=== PATIENT | female | born 1995 | race Caucasian/White ===

== ENCOUNTER 2016-10-04 14:00 | Emergency (ER) | payer MEDICAID ==
[~2016-10-04] VITALS: Ht 162.6 cm; Wt 70.0 kg
[2016-10-04 14:04] VITALS: BP 123/76; PULSE 77; RESP 15; TEMP 98.2; O2SAT 97
--- NOTE | 2016-10-04 14:28 | PD ---
HPI Chief Complaint: Pain: Acute or Chronic Time Seen by Provider: 14:28 Travel History International Travel<30 days: No Contact w/Intl Traveler<30days: No Traveled to known affect area: No History of Present Illness HPI 20-year-old female presents to the ED for evaluation of 4 day history of right sided right upper outer quadrant breast pain. Gradual onset. Patient denies fever, chills. She has been unable to express anything from the nipple. She states these symptoms are similar to previous episode of mastitis. She quit nursing approximately 10 months ago. She denies chronic breast changes with menstrual cycle. She has never had a mammogram. Unsure of any breast cancer history in the family. PFSH Past Medical History ?: Unknown Social History Tobacco Use: No Allergies-Medications (Allergen,Severity, Reaction): Coded Allergies: No Known Allergies (Unverified , 10/04/16) Reported Meds & Prescriptions Reported Meds & Active Scripts Active Keflex (Cephalexin) 500 Mg Cap 500 Mg PO Q8H Bactrim DS (Sulfamethoxazole-Trimethoprim) 800-160 Mg Tab 1 Tab PO BID Review of Systems Except as stated in HPI: all other systems reviewed are Neg Physical Exam Narrative GENERAL: Well-nourished, well-developed white female in no acute distress. SKIN: Focused skin assessment warm/dry. BREAST EXAM: TTP in the right upper outer quadrant of the right breast, adjacent to the areola. No palpable mass. No nipple discharge. No axillary LAD. HEAD: Normocephalic. EYES: No scleral icterus. No injection or drainage. NECK: Supple, trachea midline. No JVD or lymphadenopathy. CARDIOVASCULAR: Regular rate and rhythm without murmurs, gallops, or rubs. RESPIRATORY: Breath sounds equal bilaterally. No accessory muscle use. GASTROINTESTINAL: Abdomen soft, non-tender, nondistended. MUSCULOSKELETAL: No cyanosis, or edema. BACK: Nontender without obvious deformity. No CVA tenderness. Data Data Last Documented VS Vital Signs Date Time Temp Pulse Resp B/P Pulse Ox O2 Delivery O2 Flow Rate FiO2 10/04/16 17:30 99.1 16 10/04/16 14:04 77 123/76 97 Orders Complete Blood Count With Diff (10/04/16 15:09) Basic Metabolic Panel (Bmp) (10/04/16 15:09) Us Breast Unilateral (10/04/16 ) Ed Urine Pregnancytest Poc (10/04/16 15:09) Labs Laboratory Tests Test 10/04/16 16:00 White Blood Count 12.6 TH/MM3 Red Blood Count 5.06 MIL/MM3 Hemoglobin 15.4 GM/DL Hematocrit 45.4 % Mean Corpuscular Volume 89.9 FL Mean Corpuscular Hemoglobin 30.5 PG Mean Corpuscular Hemoglobin 33.9 % Concent Red Cell Distribution Width 13.6 % Platelet Count 284 TH/MM3 Mean Platelet Volume 8.4 FL Neutrophils (%) (Auto) 72.7 % Lymphocytes (%) (Auto) 18.6 % Monocytes (%) (Auto) 6.3 % Eosinophils (%) (Auto) 1.9 % Basophils (%) (Auto) 0.5 % Neutrophils # (Auto) 9.1 TH/MM3 Lymphocytes # (Auto) 2.3 TH/MM3 Monocytes # (Auto) 0.8 TH/MM3 Eosinophils # (Auto) 0.2 TH/MM3 Basophils # (Auto) 0.1 TH/MM3 CBC Comment DIFF FINAL Differential Comment Sodium Level 139 MEQ/L Potassium Level 4.3 MEQ/L Chloride Level 107 MEQ/L Carbon Dioxide Level 26.9 MEQ/L Anion Gap 5 MEQ/L Blood Urea Nitrogen 11 MG/DL Creatinine 0.66 MG/DL Estimat Glomerular Filtration 115 ML/MIN Rate Random Glucose 80 MG/DL Calcium Level 9.4 MG/DL MDM Medical Decision Making Medical Screen Exam Complete: Yes Emergency Medical Condition: Yes Differential Diagnosis Mastalgia versus periductal mass versus fibroadenoma versus fibrocystic changes versus other Narrative Course 20-year-old female presents to the ED for evaluation of 4 day history of right sided right upper outer quadrant breast pain. Gradual onset. Patient denies fever, chills. She has been unable to express anything from the nipple. She states these symptoms are similar to previous episode of mastitis. She quit nursing approximately 10 months ago. She denies chronic breast changes with menstrual cycle. She has never had a mammogram. Unsure of any breast cancer history in the family. Vitals reviewed. Physical exam reveals a nontoxic- appearing white female in no acute distress. TTP in the upper outer quadrant of the right breast, adjacent to the areola. No palpable mass. No nipple discharge. No axillary LAD. CBC: WBC 12.6. No anemia. CMP: Unremarkable. Breast US: No drainable fluid collection seen. Given the elevated white count we'll treat with outpatient antibiotics for possible early cellulitis. Patient is instructed to take the antibiotics as prescribed, continue with warm compresses, follow up with her primary care for recommendations regarding mammography. She indicated understanding of the instructions and agrees to the care plan. She stable and discharged home. Diagnosis Primary Impression: Cellulitis of right breast Referrals: [facility] Patient Instructions: Cellulitis (ED), General Instructions Additional Instructions: Rest, hydrate. Take all antibiotics as prescribed, even if your symptoms resolve. Take [id number] pain medications as directed on label, as needed. Warm compresses applied to the breast may also help to reduce your pain symptoms. Follow-up with the [facility] as discussed. Discuss your breast cancer risks with your doctor for mammography recommendations. Return to the ED for worsening symptoms or any urgent or emergent medical condition. Med/Other Pt SpecificInfo: Prescription(s) given Scripts Cephalexin (Keflex)500 Mg [id number] Mg PO Q8H #30 CAP Ref 0 Prov:Candelario Crisostomo MD 10/04/16 Sulfamethoxazole-Trimethoprim (Bactrim DS)800-160 Mg Tab1 Tab PO BID #14 TAB Ref 0 Prov:Candelario Crisostomo MD 10/04/16 Disposition: 01 DISCHARGE HOME Condition: Stable Yolanda Fraser Oct 04, 2016 14:28
[2016-10-04 16:55] LABS: AUTOMATED NEUTROPHIL # 9.1 TH/MM3 (1.8-7.7); BASOPHIL # 0.1 TH/MM3 (0-0.2); BASOPHIL % 0.5 % (0.0-2.0); EOSINOPHIL # 0.2 TH/MM3 (0-0.4); EOSINOPHIL % 1.9 % (0.0-4.0); HEMATOCRIT 45.4 % (35.0-46.0); HEMO FLAGS DIFF FINAL; LYMPH % 18.6 % (9.0-44.0); LYMPHOCYTE # 2.3 TH/MM3 (1.0-4.8); MEAN CELL VOLUME 89.9 FL (80.0-100.0); MEAN CORPUSCULAR HEMOGLOBIN 30.5 PG (27.0-34.0); MEAN CORPUSCULAR HGB CONC 33.9 % (32.0-36.0); MONO % 6.3 % (0.0-8.0); NEUT % 72.7 % (16.0-70.0); PLATELET COUNT 284 TH/MM3 (150-450); RED BLOOD COUNT 5.06 MIL/MM3 (4.00-5.30); RED CELL DISTRIBUTION WIDTH 13.6 % (11.6-17.2); WHITE BLOOD COUNT 12.6 TH/MM3 (4.0-11.0)
--- NOTE | 2016-10-04 17:11 | RADRPT ---
EXAM DATE/TIME: 10/04/2016 16:17 [place] COMPARISON: No previous studies available for comparison. INDICATIONS : Right breast abscess. MEDICAL HISTORY : Tobacco use. SURGICAL HISTORY : [place] teeth. ENCOUNTER: Initial ACUITY: 4-6 days PAIN SCORE: 7/10 LOCATION: Right breast. FINDINGS: The 7: 00-12:00 region was scanned. No drainable fluid collections seen. No significant hyperemia by color Doppler. Heterogeneous echotexture to the fibroglandular tissue. CONCLUSION: 1. No drainable fluid collection seen. 2. Please note that this examination is performed for purposes of identification of abscess and not f or detection/characterization of breast cancer. Vahid Angulo MD on October 04, 2016 at 17:08 Board Certified Radiologist. This report was verified electronically.
[2016-10-04 17:12] LABS: BICARBONATE 26.9 MEQ/L (21.0-32.0); POTASSIUM 4.3 MEQ/L (3.5-5.1)
[2016-10-04] MEDS ORDERED: BACT800T5 PO (17:20)
[2016-10-04] MEDS ORDERED: CEPH-460 PO (17:20)
[2016-10-04 17:30] VITALS: TEMP 99.1
== END 2016-10-04 17:31 | disposition home or self-care (01) ==
LOC: NEPD 14:00
DX: N61.0 Mastitis without abscess (principal)
CPT/HCPCS: 76642; 80048; 84703; 85025

== ENCOUNTER 2016-11-01 13:27 | Emergency (ER) | payer MEDICAID ==
[~2016-11-01] VITALS: Ht 160 cm; Wt 79.5 kg
[~2016-11-01 13:27] MED LIST: BACT800T5 PO; CEPH-460 PO
[2016-11-01 13:28] VITALS: BP_SYST 127; BP_DIAS 35; BP_DIAS 85; PULSE 89; RESP 18; TEMP 98.3; O2SAT 99
--- NOTE | 2016-11-01 13:45 | PD ---
HPI Chief Complaint: Back/ Neck Pain or Injury Time Seen by Provider: 13:45 Travel History International Travel<30 days: No Contact w/Intl Traveler<30days: No Traveled to known affect area: No History of Present Illness HPI 20-year-old female presents to the emergency department complaining of left lateral neck pain after getting hit in the side of the neck with a surfboard. Denies loss of consciousness. Reports feeling dizzy, but reports it has gotten better. Denies nausea, vomiting. Has not taken any medications or try to treat with his symptoms. Patient is aggravated with palpation and movement of the neck. No known allergies. Has no other medical complaints. No other modifying factors or associated signs and symptoms. PFSH Past Medical History ?: Unknown LMP: 10/17/16 Past Surgical History Oral Surgery: Yes ([place] teeth) Social History Alcohol Use: No Tobacco Use: No Substance Use: No Allergies-Medications (Allergen,Severity, Reaction): Coded Allergies: No Known Allergies (Unverified , 11/01/16) Reported Meds & Prescriptions Reported Meds & Active Scripts Active Robaxin (Methocarbamol) 500 Mg Tab 500 Mg PO QID PRN Ibuprofen 800 Mg Tab 800 Mg PO Q6HR PRN Review of Systems Except as stated in HPI: all other systems reviewed are Neg Physical Exam Narrative GENERAL: Well-nourished, well-developed female patient, in no acute distress SKIN: Warm and dry. HEAD: Atraumatic. Normocephalic. EYES: Pupils equal and round. No scleral icterus. No injection or drainage. ENT: Mucosa pink and moist. Airway patent. NECK: Trachea midline. No lymphadenopathy. Active rotation of the neck greater than 45 left and right. No midline point tenderness on palpation of the cervical spine. Reproducible tenderness to the left lateral musculature of the neck; area without erythema, edema, ecchymosis. No obvious deformities. CARDIOVASCULAR: Regular rate. RESPIRATORY: No accessory muscle use. GASTROINTESTINAL: Rounded. MUSCULOSKELETAL: No obvious deformities. No clubbing. No cyanosis. No edema. Normal gait. BACK: No point tenderness on palpation of spine. No obvious deformities. NEUROLOGICAL: Awake and alert. Oriented 3. No obvious cranial nerve deficits. Motor grossly within normal limits. Normal speech. Moves all extremities. 5/5 strength to all extremities. Sensory intact. PSYCHIATRIC: Appropriate mood and affect; insight and judgment normal. Data Data Last Documented VS Vital Signs Date Time Temp Pulse Resp B/P Pulse Ox O2 Delivery O2 Flow Rate FiO2 11/01/16 13:28 98.3 89 18 127/85 99 Room Air Orders Ibuprofen (Motrin) (11/01/16 14:00) Methocarbamol (Robaxin) (11/01/16 14:00) MDM Medical Decision Making Medical Screen Exam Complete: Yes Emergency Medical Condition: Yes Medical Record Reviewed: Yes Differential Diagnosis Contusion, muscle strain, muscle spasm Narrative Course 19-year-old female with a contusion of the left lateral neck. Denies loss of consciousness. There is no erythema, edema, ecchymosis to the left lateral neck. No midline point tenderness on palpation of the cervical spine. Long C-Spine Rule suggests the C-Spine can be cleared clinically of fracture , and imaging is not required. There is no midline point tenderness on palpation of the cervical spine. The patient is able to actively rotate the neck 45 left and right. The patient is sitting up in bed at 90. The patient is ambulatory. Robaxin and ibuprofen administered in the ER. Robaxin and ibuprofen prescribed for home. Instructed patient to follow up with primary care provider. Patient verbalizes understanding and agreement with treatment plan. Patient is medically cleared and stable for discharge. Discussed reasons to return to the emergency department. Patient agrees with treatment plan. The patients vital signs are stable and the patient is stable for outpatient follow-up and treatment. Patient discharged home, stable and in no acute distress. Diagnosis Primary Impression: Contusion of neck Qualified Code: S10.93XA - Contusion of neck, initial encounter Referrals: Primary Care Physician Patient Instructions: Contusion in Adults (ED), General Instructions Departure Forms: Tests/Procedures, Work Release Enter return to work date: Nov 02, 2016 Additional Instructions: Tylenol or ibuprofen as directed and as needed to reduce pain Robaxin as prescribed for muscle spasms Get adequate rest Ice and/or heating pad to affected area to reduce pain Avoid aggravating activity; increase activity as tolerated Follow-up with primary care provider Return to the emergency department immediately with worsening symptoms Med/Other Pt SpecificInfo: Prescription(s) given Scripts Methocarbamol (Robaxin)500 Mg [id number] Mg PO QID PRN (MUSCLE SPASM) #30 TAB Ref 0 Prov:Jelly Chaney 11/01/16 Ibuprofen 800 Mg [id number] Mg PO Q6HR PRN (PAIN) #30 TAB Ref 0 Prov:Jelly Chaney 11/01/16 Disposition: 01 DISCHARGE HOME Condition: Stable Jelly Chaney Nov 01, 2016 13:45
[2016-11-01] MEDS ORDERED: IBUP800T23 PO (13:48)
[2016-11-01] MEDS ORDERED: ROBA500T PO (13:48)
[2016-11-01] MEDS ORDERED: IBUPROFEN 800 MG TAB PO ONE (14:00)
[2016-11-01] MEDS ORDERED: METHOCARBAMOL 500 MG TAB PO ONE (14:00)
== END 2016-11-01 14:30 | disposition home or self-care (01) ==
LOC: NEPD 13:27
DX: S10.93XA Contusion of unspecified part of neck, initial encounter (principal); V91.88XA Other injury due to other accident to other unpowered watercraft, initial encounter; Y93.18 Activity, surfing, windsurfing and boogie boarding; Y92.832 Beach as the place of occurrence of the external cause
CPT/HCPCS: 99283